=== PATIENT | male | born 1985 | race Hispanic/Latino ===

== ENCOUNTER 2016-12-31 17:37 | Emergency (ER) | payer OTHER ==
[2016-12-31 22:19] LABS: Basophils % (Auto) 0.4 % (0.0-1.8); Eosinophils % (Auto) 2.2 % (0.0-4.3); Hematocrit 40.7 % (35.5-45.6); Mean Corpuscular HGB Conc 34 % (32-34); Mean Corpuscular Hemoglobin 29 pg (28-32); Mean Corpuscular Volume 85 fl (84-94); Platelet Count 241 K/mm3 (140-440); Red Cell Distribution Width 13.3 % (13.2-15.2); White Blood Count 9.2 K/mm3 (4.5-11.0)
--- NOTE | 2016-12-31 22:26 | XRay Report ---
FINAL REPORT EXAM: XR CHEST ROUTINE 2V HISTORY: chest pain TECHNIQUE: PA and lateral views of the chest. PRIORS: None FINDINGS: The lungs and pleural spaces are clear. No focal consolidation, pleural effusion or pneumothorax is identified. The mediastinum and luis are normal. The aorta is normal. The heart is normal in size. The osseous structures are unremarkable. IMPRESSION: No evidence of acute cardiopulmonary disease.
--- NOTE | 2016-12-31 22:27 | Emergency Department Report ---
ED Chest Pain HPI - General Chief Complaint: Chest Pain Stated Complaint: CHEST PAIN Time Seen by Provider: 12/31/16 21:40 Source: patient Mode of arrival: Ambulatory Limitations: No Limitations - History of Present Illness Initial Comments: 31-year-old male past medical history herniated disks L spine presents with complaint of mild left-sided chest pain since earlier this afternoon. Patient states that he was at work and he began experiencing pain/achiness/sharp pain along his left side chest and axillary region. Patient denies any diaphoresis shortness of breath palpitations nausea or vomiting no dizziness or headache associated with chest pain. Pain has waxed and waned throughout the day but not gone away completely. Patient is awake alert and oriented 3 visibly pointing to his left-sided chest. Patient states it is slightly worse when he takes a deep breath. Patient is accompanied by his . Patient denies any trauma to left-sided chest no falls no assaults reported by patient. Patient states that one week ago he finished a course of antibiotics for a superficial cellulitis underneath his left axilla. Denies smoking or drinking alcohol use. Patient states that his father had a heart attack in his mid 50s. Patient denies any history of angina. When I asked the patient he states he has never had a stress test or an echocardiogram MD Complaint: chest pain Onset/Timin -: hour(s) Onset: during rest Pain Location: left chest Pain Radiation: none Severity: moderate Severity scale (0 -10): 5 Quality: aching Consistency: constant Improves With: nothing Worsens With: nothing Treatments Prior to Arrival: none Aspirin use within the Past 7 Days: (0) No - Related Data On Oral Contraceptives: No Home Medications Medication Instructions Recorded Confirmed Last Taken Cyclobenzaprine [Flexeril 10mg] 10 mg PO TID PRN 03/29/14 03/29/14 03/28/14 21: 00 traMADol [Ultram] 50 mg PO Q4HR PRN 03/29/14 03/29/14 03/27/14 Previous Rx's Medication Instructions Recorded Last Taken Type HYDROcodone/APAP 5-325 [[place] 1 each PO Q6HR PRN #14 tablet 03/30/14 Unknown Rx 5/325] Ibuprofen [Motrin 800 MG tab] 800 mg PO TID PRN #30 tablet 02/16/16 Unknown Rx Sulfamethoxazole/Trimethoprim 1 each PO BID #20 tablet 02/16/16 Unknown Rx [Bactrim DS TAB] Aspirin EC [Aspirin Enteric Coated 81 mg PO QDAY #1 bottle 12/31/16 Unknown Rx TAB] Naproxen [Naprosyn TAB] 500 mg PO BID PRN #20 tablet 12/31/16 Unknown Rx Allergies Allergy/AdvReac Type Severity Reaction Status Date / Time No Known Allergies Allergy Verified 12/31/16 18:13 DAVID score - David Score Age > 65: (0) No Aspirin use within the Past 7 Days: (0) No 3 or more CAD Risk Factors: (0) No 2 or more Angina events in past 24 hrs: (0) No Known CAD with more than 50% Stenosis: (0) No Elevated Cardiac Markers: (0) No ST Deviation Greater than 0.5mm: (0) No DAVID Score: 0 ED Review of Systems ROS: Stated complaint: CHEST PAIN Other details as noted in HPI Constitutional: denies: chills, fever Eyes: denies: eye pain, eye discharge, vision change ENT: denies: ear pain, throat pain Respiratory: denies: cough, shortness of breath, wheezing Cardiovascular: chest pain (left sided chest pain). denies: palpitations Endocrine: no symptoms reported Gastrointestinal: denies: abdominal pain, nausea, diarrhea Genitourinary: denies: urgency, dysuria Musculoskeletal: denies: back pain, joint swelling, arthralgia Skin: denies: rash, lesions Neurological: denies: headache, weakness, paresthesias Psychiatric: denies: anxiety, depression Hematological/Lymphatic: denies: easy bleeding, easy bruising ED Past Medical Hx - Past Medical History Hx Psychiatric Treatment: Yes (PTSD / DEPRESSION) Additional medical history: CHRONIC PAIN (ANKLE / BACK ) - Surgical History Additional Surgical History: l) ankle surg x 2 - Social History Smoking Status: Former Smoker Substance Use Type: Prescribed - Medications Home Medications: Home Medications Medication Instructions Recorded Confirmed Last Taken Type Cyclobenzaprine [Flexeril 10mg] 10 mg PO TID PRN 03/29/14 03/29/14 03/28/14 21: 00 History traMADol [Ultram] 50 mg PO Q4HR PRN 03/29/14 03/29/14 03/27/14 History HYDROcodone/APAP 5-325 [[place] 1 each PO Q6HR PRN #14 tablet 03/30/14 Unknown Rx 5/325] Ibuprofen [Motrin 800 MG tab] 800 mg PO TID PRN #30 tablet 02/16/16 Unknown Rx Sulfamethoxazole/Trimethoprim 1 each PO BID #20 tablet 02/16/16 Unknown Rx [Bactrim DS TAB] Aspirin EC [Aspirin Enteric Coated 81 mg PO QDAY #1 bottle 12/31/16 Unknown Rx TAB] Naproxen [Naprosyn TAB] 500 mg PO BID PRN #20 tablet 12/31/16 Unknown Rx ED Physical Exam - General Limitations: No Limitations General appearance: alert, in no apparent distress - Head Head exam: Present: atraumatic, normocephalic - Eye Eye exam: Present: normal appearance, PERRL, EOMI - ENT ENT exam: Present: mucous membranes moist - Neck Neck exam: Present: normal inspection, full ROM - Respiratory Respiratory exam: Present: normal lung sounds bilaterally, chest wall tenderness (mild reproducible pain left mid axillary line level of the nipple). Absent: respiratory distress - Cardiovascular Cardiovascular Exam: Present: regular rate, normal rhythm. Absent: systolic murmur, diastolic murmur, rubs, gallop - GI/Abdominal GI/Abdominal exam: Present: soft, normal bowel sounds - Rectal Rectal exam: Present: deferred - Extremities Exam Extremities exam: Present: normal inspection - Back Exam Back exam: Present: normal inspection - Neurological Exam Neurological exam: Present: alert, oriented X3, CN II-XII intact, normal gait - Psychiatric Psychiatric exam: Present: normal affect, normal mood - Skin Skin exam: Present: warm, dry, intact, normal color. Absent: rash ED Course Vital Signs 12/31/16 18:05 Temperature 98.0 F Pulse Rate 74 Respiratory 16 Rate Blood Pressure 131/94 O2 Sat by Pulse 100 Oximetry ED Medical Decision Making - Lab Data Result diagrams: 12/31/16 22:04 12/31/16 22:04 - Medical Decision Making A/P: Left-sided chest pain, anginal pain versus chest wall tenderness 1-EKG normal sinus rhythm rate of 77, troponin negative 1, CK-MB negative 1, BMP within normal limits, d-dimer negative 2-I verified with the patient that he has not had a stress test or an echocardiogram and it never been evaluated by a tobacco roller. 3-I discussed the case with Dr. Riggins. As the patient has never had any advanced cardiology testing and is currently complaining of chest pain and admission is warranted for cardiology consult and echocardiogram/stress testing to rule out underlying CAD and to treat the patient's angina/chest pain. I discussed admission for this purpose with the patient. Patient states that he does not wish to stay in the hospital tonight and would follow up with his primary doctor. I advised the patient that if he leaves the hospital without a full medical workup and clearance of any underlying cardiac disease that he is at risk of myocardial infarction/heart attack and may have undiagnosed CAD. I specifically commented to the patient that he is at risk of permanent disability or if this issue is not attended to on a emergent/urgent basis. Pt stated he understood these risks but still wished to leave the hospital. Patient signed out AGAINST MEDICAL ADVICE. This discussion was witnessed by patient's was at bedside for entire conversation. I reported this to nurse Jaymie who was working with me at the time and witnessed AMA. 4-advised patient to use 81 mg aspirin until seen by tobacco roller, naproxen when necessary for chest wall pain Critical care attestation.: If time is entered above; I have spent that time in minutes in the direct care of this critically ill patient, excluding procedure time. ED Disposition Clinical Impression: Left sided chest pain Disposition: LEFT AGAINST MEDICAL ADVICE Is pt being admited?: No Does the pt Need Aspirin: No Condition: Stable Instructions: Chest Pain (ED), Angina (ED), Against Medical Advice (ED) Prescriptions: Aspirin EC [Aspirin Enteric Coated TAB] 81 mg PO QDAY #1 bottle Naproxen [Naprosyn TAB] 500 mg PO BID PRN #20 tablet PRN Reason: Pain Referrals: CLEO BEAVERS MD [Staff Physician] - 3-5 Days HEMANTH SOLORIO MD [Staff Physician] - 3-5 Days Forms: AMA Form, Accompanied Note Time of Disposition: 23:29
[2016-12-31 22:50] LABS: Creatine Kinase MB 1.8 ng/mL (0.0-4.0)
[2016-12-31 22:51] LABS: Anion Gap 18 mmol/L; BUN/Creatinine Ratio 7.85; Blood Urea Nitrogen 11 mg/dL (9-20); Calcium 9.7 mg/dL (8.4-10.2); Carbon Dioxide 27 mmol/L (22-30); Chloride 95.7 mmol/L (98-107); Creatine Kinase 130 units/L (55-170); Glucose 90 mg/dL (75-100); Potassium 4.2 mmol/L (3.6-5.0); Sodium 136 mmol/L (137-145)
[2016-12-31] MEDS ORDERED: ASPIRIN PO ONE (23:30)
[2016-12-31 23:52] VITALS: BP 143/71
== END 2016-12-31 23:50 | disposition left against medical advice (07) ==
LOC: ED 17:37
DX: R07.9 Chest pain, unspecified (principal); F32.9 Major depressive disorder, single episode, unspecified; F43.10 Post-traumatic stress disorder, unspecified; G89.29 Other chronic pain; Z87.891 Personal history of nicotine dependence
CPT/HCPCS: 36415; 71020; 80048; 82550; 82553; 84484; 85025; 85379; 93005; 93010